=== PATIENT | male | born 1955 | race Caucasian/White ===

== ENCOUNTER 2017-04-03 12:02 | Emergency (ER) | payer BC ==
[2017-04-03 12:09] VITALS: BP 155/102
[2017-04-03] MEDS ORDERED: Diphtheria,Pertussis(Acell),Tetanus Vaccine 0.5 ML SDV IM ONE (12:19)
[2017-04-03] MEDS ORDERED: Lidocaine 1% 50 ML MDV INJECT ONE (12:19)
[2017-04-03] MEDS ORDERED: Cephalexin 500 MG Cap PO ONE (13:17)
--- NOTE | 2017-04-03 13:23 | EDM.PDOC ---
ED HPI GENERAL MEDICAL PROBLEM - General Chief Complaint: ENT Problem Stated Complaint: EAR INJURY Time Seen by Provider: 04/03/17 12:15 Source of Information: Reports: Patient, RN Notes Reviewed - History of Present Illness INITIAL COMMENTS - FREE TEXT/NARRATIVE: 62-year-old dailey/rancher slipped on ice and fell against his tractors tire with resultant laceration injury of left earlobe. There was some bleeding initially but that was controlled with pressure. No LOC, no significant neck back or other pain or injury from this incident. Unsure of when his last tetanus immunization would have been but likely quite long ago. Left Ear Pain Score (Numeric/FACES): 8 - Related Data Allergies Allergy/AdvReac Type Severity Reaction Status Date / Time No Known Allergies Allergy Verified 04/03/17 12:09 Home Meds: Home Meds Cephalexin [IJD: Cephalexin] 500 mg PO Q6HR #20 cap 04/03/17 [Rx] Past Medical History - Past Health History Medical/Surgical History: Denies Medical/Surgical History Musculoskeletal History: Reports: Other (See Below) Other Musculoskeletal History: spine arthritis Social & Family History - Tobacco Use Smoking Status *Q: Never Smoker - Recreational Drug Use Recreational Drug Use: No ED ROS ENT - Review of Systems Review Of Systems: See Below Constitutional: Reports: No Symptoms HEENT: Reports: Ear Pain, Other (Earlobe laceration) Respiratory: Denies: Shortness of Breath, Pleuritic Chest Pain Cardiovascular: Denies: Chest Pain GI/Abdominal: Denies: Abdominal Pain, Nausea, Vomiting Musculoskeletal: Denies: Neck Pain, Shoulder Pain, Arm Pain, Back Pain, Leg Pain , Joint Pain Neurological: Denies: Headache, Numbness, Tingling ED EXAM, ENT - Physical Exam Exam: See Below Eye Exam: Bilateral Eye: PERRL Ears: Other (5 cm somewhat jagged laceration injury of mid to upper aspect of the earlobe does not extend into the ear canal, this has flat configuration moderate separation of tissue., No foreign material seen, no active bleeding at time of my exam) Mouth/Throat: Normal Inspection Head: Other (Head is otherwise atraumatic) Neck: Supple, Full Range of Motion Respiratory/Chest: No Respiratory Distress, Lungs Clear Cardiovascular: Regular Rate, Rhythm Neurological: Alert, Oriented, No Motor/Sensory Deficits Skin: Warm, Dry, Normal Color ED ENT PROCEDURES - Laceration/Wound Repair Left Ear Lac/wound length in cm: 5 Appearance: Irregular, Other (Flap configuration) Distal NVT: Neuro & Vascular Intact Anesthetic Type: Local Local Anesthesia - Lidocaine (Xylocaine): 1% Plain Skin Prep: Saline Exploration/Debridement/Repair: Wound Explored Suture Size: other (Many 4- 0 and 5-0 Ethilon sutures placed to bring edges of flap back into alignment) Course - Vital Signs Last Recorded V/S: Last Vital Signs Temp 98.9 F 04/03/17 12:07 Pulse 64 04/03/17 12:07 Resp 16 04/03/17 12:07 BP 155/102 H 04/03/17 12:07 Pulse Ox 93 L 04/03/17 12:07 - Orders/Labs/Meds Meds: Medications Discontinued Medications Generic Name Dose Route Start Last Admin Trade Name Lawrenceq PRN Reason Stop Dose Admin Cephalexin 500 mg 04/03/17 13:17 04/03/17 13:23 Keflex PO 04/03/17 13:18 500 mg ONETIME ONE Administration Diphtheria/Tetanus/Acell Pertussis 0.5 ml 04/03/17 12:19 04/03/17 12:33 Adacel IM 04/03/17 12:20 0.5 ml .ONCE ONE Administration Lidocaine HCl 50 ml 04/03/17 12:19 04/03/17 12:33 Xylocaine 1% INJECT 04/03/17 12:20 50 ml ONETIME ONE Administration Departure - Departure Time of Disposition: 13:18 Disposition: Home, Self-Care 01 Condition: Fair Clinical Impression: Laceration of earlobe Qualifiers: Encounter type: initial encounter Laterality: left Qualified Code(s): S01.312A - Laceration without foreign body of left ear, initial encounter - Discharge Information Prescriptions: Cephalexin [IJD: Cephalexin] 500 mg PO Q6HR #20 cap Instructions: Laceration Care, Adult, [id number] Referrals: PCP,None [Primary Care Provider] - Forms: ED Department Discharge Additional Instructions: Laceration care instructions, Try maintain pressure type dressing applied here in the ED as much as possible for the next 2 or 3 days, when it works antibiotic ointment 2-3 times daily along the path of the laceration, cephalexin antibiotic 500 mg 4 times daily for 1 week, have rechecked any sign of infection. Stitches out in 9 days. There is no charge if you decide to have them taken out at our [facility] clinic.
== END 2017-04-03 13:30 | disposition home or self-care (01) ==
LOC: JD.ED 12:02
DX: S01.312A Laceration without foreign body of left ear, initial encounter (principal); Z23 Encounter for immunization; W00.0XXA Fall on same level due to ice and snow, initial encounter
CPT/HCPCS: 13152; 90471; 90715; 99283; A9270

== ENCOUNTER 2018-06-28 08:57 | Emergency (ER) | payer BC ==
[2018-06-28 09:09] VITALS: BP 151/78
[2018-06-28] MEDS ORDERED: Lidocaine 1% 10 ML MDV INJECT ONE (09:41)
--- NOTE | 2018-06-28 10:53 | EDM.PDOC ---
ED HPI GENERAL MEDICAL PROBLEM - General Chief Complaint: Laceration Stated Complaint: LEFT INDEX FINGER LACERATION Time Seen by Provider: 06/28/18 09:21 Source of Information: Reports: Patient History Limitations: Reports: No Limitations - History of Present Illness INITIAL COMMENTS - FREE TEXT/NARRATIVE: The patient presents with a left middle finger laceration. He was working with a winch today and it caught his finger and cut his left middle finger. His tetanus is up to date and he is right handed. He can move the finger just fine. Onset: Sudden Duration: Minutes: Location: Reports: Upper Extremity, Left (middle finger laceration) Quality: Reports: Sharp Severity: Moderate Improves with: Reports: Immobilization Worsens with: Reports: Movement Associated Symptoms: Reports: No Other Symptoms - Related Data Allergies Allergy/AdvReac Type Severity Reaction Status Date / Time No Known Allergies Allergy Verified 06/28/18 09:08 Home Meds: Home Meds . [No Known Home Meds] 06/28/18 [History] Past Medical History - Past Health History Medical/Surgical History: Denies Medical/Surgical History Musculoskeletal History: Reports: Other (See Below) Other Musculoskeletal History: spine arthritis Social & Family History - Tobacco Use Smoking Status *Q: Never Smoker - Recreational Drug Use Recreational Drug Use: No ED ROS GENERAL - Review of Systems Review Of Systems: See Below Constitutional: Reports: No Symptoms HEENT: Reports: No Symptoms Respiratory: Reports: No Symptoms Cardiovascular: Reports: No Symptoms Endocrine: Reports: No Symptoms GI/Abdominal: Reports: No Symptoms : Reports: No Symptoms Musculoskeletal: Reports: Other (Laceration to the volar aspect of the left middle finger) ED EXAM, SKIN/RASH Exam: See Below Exam Limited By: No Limitations General Appearance: Alert, No Apparent Distress Ears: Normal External Exam Nose: Normal Inspection Head: Atraumatic, Normocephalic Neck: Normal Inspection Respiratory/Chest: No Respiratory Distress Extremities: Other (3cm laceration to the volar aspect of the left 3rd finger on the proximal part of the finger. Good movement against ressistance and good capillary refill distally. No tendon laceration is seen.) ED SKIN PROCEDURES - Laceration/Wound Repair Left Digit - 3rd (Middle) Lac/Wound length In cm: 3 Appearance: Subcutaneous, Irregular Distal NVT: Neuro & Vascular Intact, No Tendon Injury Anesthetic Type: Digital Local Anesthesia - Lidocaine (Xylocaine): 1% Plain Skin Prep: Saline Exploration/Debridement/Repair: Wound Explored, In a Bloodless Field, Explored to Base Closed with: Sutures Suture Size: 4-0 # of Sutures: 10 Suture Type: Nylon, Interrupted, Simple Tetanus Status Addressed: Yes Complications: No Course - Vital Signs Last Recorded V/S: Last Vital Signs Temp 98.5 F 06/28/18 09:07 Pulse 87 06/28/18 09:07 Resp 16 06/28/18 09:07 BP 151/78 H 06/28/18 09:07 Pulse Ox 98 06/28/18 09:07 - Orders/Labs/Meds Meds: Medications Discontinued Medications Generic Name Dose Route Start Last Admin Trade Name Freq PRN Reason Stop Dose Admin Lidocaine HCl 10 ml 06/28/18 09:41 06/28/18 09:50 Xylocaine 1% INJECT 06/28/18 09:42 10 ml ONETIME ONE Administration - Re-Assessments/Exams Free Text/Narrative Re-Assessment/Exam: 06/28/18 10:54 I sutured the laceration. The patient tolerated the procedure well and there were no complications. Departure - Departure Time of Disposition: 10:55 Disposition: Home, Self-Care 01 Condition: Good Clinical Impression: Laceration of left middle finger Qualifiers: Encounter type: initial encounter Damage to nail status: without damage Foreign body presence: without foreign body Qualified Code(s): S61.213A - Laceration without foreign body of left middle finger without damage to nail, initial encounter - Discharge Information *PRESCRIPTION DRUG MONITORING PROGRAM REVIEWED*: Not Applicable *COPY OF PRESCRIPTION DRUG MONITORING REPORT IN PATIENT FADY: Not Applicable Referrals: PCP,None [Primary Care Provider] - Additional Instructions: Soak your finger in warm soapy water 2 times per day and apply antibiotics after. Have the sutures removed in 1 weeks. Look for any signs of infections such as redness, swelling, pain or drainage. If you have any of these signs, please return or see your doctor. You may need antibiotics.
== END 2018-06-28 11:01 | disposition home or self-care (01) ==
LOC: JD.ED 08:57
DX: S61.213A Laceration without foreign body of left middle finger without damage to nail, initial encounter (principal); W22.8XXA Striking against or struck by other objects, initial encounter
CPT/HCPCS: 12002; 99283; J2001; 99282

== ENCOUNTER 2024-04-27 12:25 | Day surgery (SDC) | payer MEDICARE, BC ==
[2024-04-27] MEDS: Brimonidine 0.2% Ophth Soln 5 ML Bottle EYELF SCH (10:19)
[2024-04-27] MEDS: Pilocarpine 4% Ophth Soln 15 ML Bot EYELF SCH (10:19)
[2024-04-27] MEDS: Phenylephrine 2.5% Ophth Soln 2 ML Bot EYELF SCH (10:19)
[2024-04-27] MEDS: Cefuroxime 10 MG/ML SYRINGE EYELF SCH (10:19)
[2024-04-27] MEDS: Tetracaine HCl/PF 0.5% 4 ML Bottle EYEBOTH SCH (10:19)
[2024-04-27] MEDS: Polymyxin B/Trimethoprim 10 ML Bottle EYELF SCH (10:19)
[2024-04-27] MEDS: Lidocaine 1% PF 2 ML SDV INJECT SCH (10:19)
[2024-04-27] MEDS: Tropicamide 1% Ophth Soln 3 ML Bottle EYELF SCH (13:28)
[2024-04-27 15:20] VITALS: BP 134/75; PULSE 92
== END 2024-04-27 15:09 | disposition home or self-care (01) ==
LOC: JD.SDS 12:25
PROVIDERS: ATTEND Ophthalmology
DX: H25.813 Combined forms of age-related cataract, bilateral (principal); H21.81 Floppy iris syndrome; H21.42 Pupillary membranes, left eye; I10 Essential (primary) hypertension; H18.413 Arcus senilis, bilateral; H35.40 Unspecified peripheral retinal degeneration; H02.831 Dermatochalasis of right upper eyelid; H02.834 Dermatochalasis of left upper eyelid; H16.103 Unspecified superficial keratitis, bilateral; H16.223 Keratoconjunctivitis sicca, not specified as Sjogren's, bilateral; Z79.899 Other long term (current) drug therapy
CPT/HCPCS: A9270-GY; J0697; J3490

== ENCOUNTER 2024-05-25 13:00 | Day surgery (SDC) | payer MEDICARE, BC ==
[2024-05-25] MEDS: Phenylephrine 2.5% Ophth Soln 2 ML Bot EYERT SCH (11:53)
[2024-05-25] MEDS: Lidocaine 1% PF 2 ML SDV INJECT SCH (11:54)
[2024-05-25] MEDS: Cefuroxime 10 MG/ML SYRINGE EYERT SCH (11:54)
[2024-05-25] MEDS: Pilocarpine 4% Ophth Soln 15 ML Bot EYERT SCH (11:54)
[2024-05-25] MEDS: Brimonidine 0.2% Ophth Soln 5 ML Bottle EYERT SCH (11:54)
[2024-05-25] MEDS: Tetracaine HCl/PF 0.5% 4 ML Bottle EYEBOTH SCH (11:54)
[2024-05-25] MEDS: Polymyxin B/Trimethoprim 10 ML Bottle EYERT SCH (11:54)
[2024-05-25] MEDS: Tropicamide 1% Ophth Soln 3 ML Bottle EYERT SCH (14:10)
[2024-05-25 16:00] VITALS: BP 130/88; PULSE 78
== END 2024-05-25 15:57 | disposition home or self-care (01) ==
LOC: JD.SDS 13:00
PROVIDERS: ATTEND Ophthalmology
DX: H25.811 Combined forms of age-related cataract, right eye (principal); I10 Essential (primary) hypertension; H40.053 Ocular hypertension, bilateral; H18.413 Arcus senilis, bilateral; H35.40 Unspecified peripheral retinal degeneration; H02.831 Dermatochalasis of right upper eyelid; H02.834 Dermatochalasis of left upper eyelid; H16.103 Unspecified superficial keratitis, bilateral; H16.223 Keratoconjunctivitis sicca, not specified as Sjogren's, bilateral; Z79.899 Other long term (current) drug therapy
CPT/HCPCS: 66984; A9270; J0697; J3490